=== PATIENT | female | born 1970 | race Caucasian/White ===

== ENCOUNTER 2017-02-14 16:58 | Emergency (ER) | payer OTHER ==
[~2017-02-14] VITALS: Ht 154.9 cm; Wt 54.4 kg
[2017-02-14] MEDS ORDERED: PENICILLIN V P500 MG PO (17:10)
[2017-02-14] MEDS ORDERED: PERMETHRIN60 GM TOP (17:10)
[2017-02-14] MEDS ORDERED: LISINOPRIL10 MG PO (17:10)
[2017-02-14] MEDS ORDERED: DILTIAZEM HCL30 MG PO (17:10)
[2017-02-15] MEDS ORDERED: LAMISIL AT12 GM TOP (09:26)
== END 2017-02-14 17:15 | disposition home or self-care (01) ==
LOC: ED 16:58
DX: Z00.8 Encounter for other general examination (principal)

== ENCOUNTER 2017-02-15 08:46 | Emergency (ER) | payer OTHER ==
[~2017-02-15] VITALS: Ht 154.9 cm; Wt 54.4 kg
[~2017-02-15 08:46] MED LIST: DILTIAZEM HCL30 MG PO; LISINOPRIL10 MG PO; PENICILLIN V P500 MG PO; PERMETHRIN60 GM TOP
[2017-02-15] MEDS ORDERED: LAMISIL AT12 GM TOP (09:26)
== END 2017-02-15 10:30 | disposition home or self-care (01) ==
LOC: ED 08:46
DX: B35.4 Tinea corporis (principal); I10 Essential (primary) hypertension; F17.200 Nicotine dependence, unspecified, uncomplicated; Z88.8 Allergy status to other drugs, medicaments and biological substances; Z79.899 Other long term (current) drug therapy; Z79.2 Long term (current) use of antibiotics
CPT/HCPCS: 99283

== ENCOUNTER 2018-09-20 23:34 | Emergency (ER) | payer OTHER ==
[~2018-09-20] VITALS: Ht 152.4 cm; Wt 47.2 kg
[~2018-09-20 23:34] MED LIST changes: +LAMISIL AT12 GM TOP
== END 2018-09-21 01:30 | disposition home or self-care (01) ==
LOC: ED 23:34
PROC: 093K7ZZ Control Bleeding in Nasal Mucosa and Soft Tissue, Via Natural or Artificial Opening (ICD-10-PCS; principal; 2018-09-20)
DX: R04.0 Epistaxis (principal); I10 Essential (primary) hypertension; F17.200 Nicotine dependence, unspecified, uncomplicated; Z88.6 Allergy status to analgesic agent; Z79.899 Other long term (current) drug therapy
CPT/HCPCS: 30901; 85025; 85610; 85730; 99283

== ENCOUNTER 2018-12-29 11:15 | Emergency (ER) | payer OTHER ==
[~2018-12-29] VITALS: Ht 152.4 cm; Wt 47.2 kg
== END 2018-12-29 12:33 | disposition home or self-care (01) ==
LOC: ED 11:15
DX: M25.552 Pain in left hip (principal); Z53.21 Procedure and treatment not carried out due to patient leaving prior to being seen by health care provider

== ENCOUNTER 2019-05-04 09:05 | Emergency (ER) | payer OTHER ==
[~2019-05-04] VITALS: Ht 152.4 cm; Wt 47.2 kg
== END 2019-05-04 10:57 | disposition home or self-care (01) ==
LOC: ED 09:05
DX: S63.502A Unspecified sprain of left wrist, initial encounter (principal); S63.602A Unspecified sprain of left thumb, initial encounter; W22.8XXA Striking against or struck by other objects, initial encounter; I10 Essential (primary) hypertension; F17.200 Nicotine dependence, unspecified, uncomplicated; Z88.1 Allergy status to other antibiotic agents; Z88.8 Allergy status to other drugs, medicaments and biological substances; Z88.2 Allergy status to sulfonamides; Z79.899 Other long term (current) drug therapy
CPT/HCPCS: 73110; 99283-25; A9270

== ENCOUNTER 2020-11-12 14:14 | Emergency (ER) | payer OTHER ==
[~2020-11-12] VITALS: Ht 152.4 cm; Wt 47.2 kg
--- OUTSIDE RECORDS SUMMARY | 2020-11-12 14:16 | XMS ---
PreManage Notification: AIRAM BERNSTEIN Security Evidence Custodian Events No recent Security Events currently on file CRITERIA MET - [facility] PROVID[facility] There are no care providers on record at this time. Dian has no Care Guidelines for this patient. Yosi VISIT COUNT (12 MO.) 1 SADA Pérez TOTAL 1 NOTE: Visits indicate total known visits. ED/C VISIT TRACKING (12 MO.) 11/12/2020 14:14 SADA Ernst OR TYPE: Emergency COMPLAINT: - ABD PAIN INPATIENT VISIT TRACKING (12 MO.) No inpatient visits to display in this time frame [id number]
[2020-11-12] MEDS ORDERED: NITROFURANTOIN100 MG PO (14:29)
[2020-11-12] MEDS ORDERED: CEPHALEXIN500 M1 PO (17:03)
== END 2020-11-12 17:28 | disposition home or self-care (01) ==
LOC: ED 14:14
DX: N39.0 Urinary tract infection, site not specified (principal); I10 Essential (primary) hypertension; F17.200 Nicotine dependence, unspecified, uncomplicated; Z88.8 Allergy status to other drugs, medicaments and biological substances; Z88.1 Allergy status to other antibiotic agents; Z88.2 Allergy status to sulfonamides; Z79.899 Other long term (current) drug therapy
CPT/HCPCS: 80053; 81001; 83690; 85025; 96374; 96375; 99284-25; J0696; J1885; J2405